=== PATIENT | male | born 1950 | race American Indian/Alaskan Native ===

== ENCOUNTER 2018-01-08 08:43 | Emergency (ER) | payer MEDICARE ==
[2018-01-08 09:05] VITALS: BP 126/77
[2018-01-08] MEDS ORDERED: DELTASONE PO ONE (10:33)
[2018-01-08] MEDS ORDERED: BENADRYL PO ONE (10:34)
--- NOTE | 2018-01-08 12:48 | Emergency Department Report ---
HPI - General Chief Complaint: Skin Rash Time Seen by Provider: 01/08/18 10:22 - [facility] HPI: Patient is a 67-year-old male who presents for evaluation of a rash. The patient reports generalized red circular rash throughout the body, constant and severe for the past one day, migratory, steady in quality, worsened with hot showers. The patient denies lip swelling, tongue swelling, dyspnea, wheezing, neck stiffness, dysphagia, stridor, drooling, difficulty tolerating secretions, dysphonia, hoarseness of voice, abdominal pain. ED Past Medical Hx - Past Medical History Hx Hypertension: Yes - Social History Smoking Status: Never Smoker - Medications Home Medications: Home Medications Medication Instructions Recorded Confirmed Last Taken Type diphenhydrAMINE [Benadryl CAP] 50 mg PO Q8HR PRN #30 capsule 01/08/18 Unknown Rx predniSONE [Deltasone] 20 mg PO QDAY #5 tab 01/08/18 Unknown Rx ED Review of Systems ROS: Stated complaint: ALLERGIC REACTION Other details as noted in HPI Constitutional: denies: fever ENT: denies: throat or neck pain Respiratory: denies: cough, shortness of breath Cardiovascular: denies: chest pain Endocrine: denies unexplained weight loss or gain Gastrointestinal: denies: abdominal pain, nausea Genitourinary: denies: dysuria Musculoskeletal: denies: leg swelling Skin: reports rash Neurological: denies: headache Hematological/Lymphatic: denies: easy bleeding or easy bruising Psych: denies sadness or hopelessness Physical Exam - Physical Exam Vital Signs: Vital Signs 01/08/18 09:02 Temperature 98.2 F Pulse Rate 82 Respiratory 16 Rate Blood Pressure 126/77 O2 Sat by Pulse 98 Oximetry Physical Exam: General: well-nourished, well-developed, no acute distress Head: Normocephalic, atraumatic Eyes: normal sclera ENT: Mucous membranes are pink and moist, no tongue swelling, no uvula swelling , no uvula deviation, no tonsillar swelling or deviation, no pooling of secretions in the posterior oropharynx Neck: trachea midline, neck supple, No neck stiffness, no cervical adenopathy Respiratory: Breath sounds equal bilaterally, no wheezing, rales, or rhonchi Cardio: S1 and S2 present, no murmurs, rubs, gallops, capillary refill is brisk Abdomen: Normoactive bowel sounds, soft abdomen, no tenderness Musc: No pitting edema Skin: Multiple circular raised blanching red macular papules present throughout the torso and extremities bilaterally Neuro: no facial drooping, normal speech Psych: Normal affect ED Course Vital Signs 01/08/18 09:02 Temperature 98.2 F Pulse Rate 82 Respiratory 16 Rate Blood Pressure 126/77 O2 Sat by Pulse 98 Oximetry ED Medical Decision Making - Medical Decision Making The patient was seen and examined by myself. The patient is placed on a relay repairer and continuous pulse ox. On initial evaluation, the patient was found to be in no distress. Evaluation orders were placed. Exam findings are consistent with acute urticaria. The patient is given prednisone and Benadryl. The patient was reevaluated and reported that their symptoms were markedly improved. The patient is stable for discharge with outpatient follow-up. The patient is given follow-up and return instructions. The patient expressed understanding and agreed with the plan. The patient is discharged in stable condition. Critical care attestation.: If time is entered above; I have spent that time in minutes in the direct care of this critically ill patient, excluding procedure time. ED Disposition Clinical Impression: Hives, Full body hives Bed bug bite Qualifiers: Encounter type: initial encounter Qualified Code(s): W57.XXXA - Bitten or stung by nonvenomous insect and other nonvenomous arthropods, initial encounter Disposition: -01 TO HOME OR SELFCARE Is pt being admited?: No Does the pt Need Aspirin: No Condition: Stable Instructions: Insect Bite or Sting (ED), Urticaria (ED) Referrals: MANN RO MD [Primary Care Provider] - 3-5 Days Time of Disposition: 10:34
== END 2018-01-08 10:44 | disposition home or self-care (01) ==
LOC: ED 08:43
DX: L50.9 Urticaria, unspecified (principal)
CPT/HCPCS: 99283; J7512